=== PATIENT | male | born 1995 | race Caucasian/White ===

== ENCOUNTER 2018-04-03 22:32 | Emergency (ER) | payer BC ==
[2018-04-04] MEDS ORDERED: Tetan/Diph/Pertus SYR(Tdap)* 0.5 ML SYR(BOOSTRIX) use SYR IM ONE
[2018-04-04] MEDS ORDERED: Lidocaine 1%* 5 ML VIAL INJ ONE (00:06)
[2018-04-04] MEDS ORDERED: Lidocaine 1%* 5 ML VIAL ONE (00:08)
[2018-04-04] MEDS ORDERED: Cephalexin CAP* 500 MG PO ONE (00:36)
--- NOTE | 2018-04-04 01:07 | ED ---
Laceration/Wound HPI - HPI Summary HPI Summary: Complains of laceration to left medial funes from rotor tiller blade. Bleeding controlled. Medical history is none. Denies loss of sensation or function distally. - History of Current Complaint Stated Complaint: LT LEG LAC Time Seen by Provider: 04/03/18 22:45 Hx Obtained From: Patient Pain Intensity: 9 - Allergy/Home Medications Allergies/Adverse Reactions: Allergies Allergy/AdvReac Type Severity Reaction Status Date / Time No Known Allergies Allergy Verified 04/03/18 22:36 PMH/Surg Hx/FS Hx/Imm Hx Infectious Disease History: No Infectious Disease History: Denies: Traveled Outside the [place] in Last 30 Days - Social History Alcohol Use: None Substance Use Type: Reports: None Smoking Status (MU): Never Smoked Tobacco Review of Systems Constitutional: Negative Eyes: Negative ENT: Negative Cardiovascular: Negative Respiratory: Negative Gastrointestinal: Negative Genitourinary: Negative Musculoskeletal: Negative Positive: Other Neurological: Negative Psychological: Normal All Other Systems Reviewed And Are Negative: Yes Physical Exam - Summary Physical Exam Summary: Laceration to medial left funes. Dorsiflexion and plantar flexion intact. Pulses and sensation intact distally. Triage Information Reviewed: Yes Vital Signs On Initial Exam: Initial Vitals Temp Pulse Resp BP Pulse Ox 98.3 F 73 18 135/85 99 04/03/18 22:33 04/03/18 22:33 04/03/18 22:33 04/03/18 22:33 04/03/18 22:33 Vital Signs Reviewed: Yes Appearance: Positive: Well-Appearing Skin: Positive: Warm Head/Face: Positive: Normal Head/Face Inspection Eyes: Positive: Normal Neck: Positive: Supple Respiratory/Lung Sounds: Positive: Clear to Auscultation Cardiovascular: Positive: Normal Abdomen Description: Positive: Nontender Musculoskeletal: Positive: Normal Neurological: Positive: Normal Psychiatric: Positive: Normal AVPU Assessment: Alert - [place] Coma Scale Best Eye Response: 4 - Spontaneous Best Motor Response: 6 - Obeys Commands Best Verbal Response: 5 - Oriented Coma Scale Total: 15 Procedures - Laceration/Wound Repair 1 Location: lower extremity Description: Linear Anesthesia: Local, 1.0% Length, Depth and Shape: 8cmx 1cm Betadine Prep?: Yes Irrigated w/ Saline (ccs): 40 - saline plus Betadine Laceration/Wound Explored: clean Debridement: minimal Number of Sutures: 9 - 4. 0 Ethilon Layer Closure?: No Diagnostics - Vital Signs Vital Signs Temp Pulse Resp BP Pulse Ox 04/03/18 22:33 98.3 F 73 18 135/85 99 - Laboratory Lab Statement: Any lab studies that have been ordered have been reviewed, and results considered in the medical decision making process. Laceration Repair Course/Dx - Course Course Of Treatment: Complains of laceration to left medial funes from rotor tiller blade. Bleeding controlled. Medical history is none. Denies loss of sensation or function distally. Laceration to medial left funes. Dorsiflexion and plantar flexion intact. Pulses and sensation intact distally. Rx for Keflex - Clinical Impression Provider Diagnoses: Laceration Discharge - Sign-Out/Discharge Documenting (check all that apply): Discharge/Admit/Transfer - Discharge Plan Condition: Stable Disposition: HOME Prescriptions: Cephalexin CAP* [Keflex CAP*] 500 mg PO TID 10 Days #30 cap Patient Education Materials: Care For Your Stitches (ED), Laceration (ED) Referrals: Susie Mejia RN [Primary Care Provider] - Additional Instructions: Take antibiotics as directed. Sutures to be removed in 10 days. May wash with warm running water and soap. Do not submerge underwater for sustained period of time. Return to the ED for any new or worsening symptoms - Billing Disposition and Condition Condition: STABLE Disposition: HOME
[2018-04-04 01:18] VITALS: BP 146/81
--- NOTE | 2018-04-04 08:05 | RAD ---
INDICATION: Laceration to left lower leg funes. TECHNIQUE: 2 views of the left lower leg were obtained. FINDINGS: The bones are normal alignment. No fracture is seen. No radiopaque foreign body is seen. IMPRESSION: NO FRACTURE OR RADIOPAQUE FOREIGN BODY IS SEEN.
== END 2018-04-04 01:17 | disposition home or self-care (01) ==
LOC: ED 22:32
DX: S81.812A Laceration without foreign body, left lower leg, initial encounter (principal); W31.89XA Contact with other specified machinery, initial encounter; Y93.9 Activity, unspecified; Y92.9 Unspecified place or not applicable; Z23 Encounter for immunization
CPT/HCPCS: 12004; 90471; 90715; 99282; A9270-GY